=== PATIENT | male | born 1985 | race Caucasian/White ===

== ENCOUNTER 2018-01-17 22:20 | Emergency (ER) | payer SELFPAY ==
--- OUTSIDE RECORDS SUMMARY | 2018-01-17 22:22 | XMS REPORT | Clinical Summary ---
:1985 Author Organization [facility] Address [address] [place] [address] Phone Care Team Providers Name Role Phone Unavailable Primary Care Provider Unavailable Allergies Not on File Current Medications Not on file Active Problems Not on file Social History Tobacco Use Types Packs/Day Years Used Date Never Assessed Sex Assigned at Date Recorded Not on file Last Filed Vital Signs Not on file Plan of Treatment Not on file Results Not on fileafter 01/16/2017
--- NOTE | 2018-01-17 23:04 | ER ---
Nurse's Notes [facility] Name: Christiano Canales Age: 32 yrs Sex: Male : 1985 Arrival Date: 01/17/2018 Time: 22:21 Bed 30 Private MD: Diagnosis: Nausea and vomiting;Jaw pain-Right Upper Back Molar;Dental caries, unspecified-Diffusely Presentation: 01/17 22:45 Presenting complaint: Patient states: pt states that he has been vomiting the last tl3 couple of days at work, went home this afternoon and has since kept down some fluids and toast. Transition of care: patient was not received from another setting of care. Onset of symptoms was January 16, 2018. Risk Assessment: Do you want to hurt yourself or someone else? Patient reports no desire to harm self or others. Initial Sepsis Screen: Does the patient meet any 2 criteria? No. Patient's initial sepsis screen is negative. Does the patient have a suspected source of infection? No. Patient's initial sepsis screen is negative. Care prior to arrival: None. 22:45 Method Of Arrival: Ambulatory tl3 22:45 Acuity: ODILON 4 tl3 Triage Assessment: 22:49 General: Appears in no apparent distress. comfortable, slender, well groomed, well tl3 developed, well nourished, Behavior is calm, cooperative, appropriate for age. Pain: Denies pain. EENT: Throat is reddened. Neuro: Level of Consciousness is awake, alert, obeys commands, Oriented to person, place, time, situation, Appropriate for age. Cardiovascular: Heart tones S1 S2 present Patient's skin is warm and dry. Respiratory: Airway is patent Respiratory effort is even, unlabored, Respiratory pattern is regular, symmetrical. GI: Reports vomiting. : No signs and/or symptoms were reported regarding the genitourinary system. Derm: No signs and/or symptoms reported regarding the dermatologic system. Musculoskeletal: No signs and/or symptoms reported regarding the musculoskeletal system. Historical: - Allergies: 22:49 No Known Allergies; tl3 - Home Meds: 22:49 Suboxone 8-2 mg sublingual film 2 film once daily [Active]; tl3 - PMHx: 22:49 Substance Abuse; tl3 - PSHx: 22:49 None; tl3 - Immunization history:: Adult Immunizations up to date. - Social history:: Smoking status: Patient uses tobacco products, smokes two packs cigarettes per day. - Ebola Screening: : Patient denies travel to an Ebola-affected area in the 21 days before illness onset. Screenin:52 Abuse screen: Denies threats or abuse. Nutritional screening: No deficits noted. tl3 Tuberculosis screening: No symptoms or risk factors identified. Fall Risk None identified. Assessment: 22:52 Reassessment: No changes from previously documented assessment. GI: Reports vomiting, tl3 resolved. : No signs and/or symptoms were reported regarding the genitourinary system. EENT: Throat is reddened. Derm: No signs and/or symptoms reported regarding the dermatologic system. Musculoskeletal: No signs and/or symptoms reported regarding the musculoskeletal system. Vital Signs: 22:49 BP 119 / 61; Pulse 47; Resp 18; Temp 99(O); Pulse Ox 98% ; tl3 ED Course: 22:21 Patient arrived in ED. am2 22:28 Jersey Pickard PA is PHCP. cp 22:28 Jersey Caraballo MD is Attending Physician. cp 22:40 Kylie Lara, RISHI is Primary Nurse. tl3 22:46 Triage completed. tl3 22:49 Arm band placed on left wrist. tl3 22:52 Patient has correct armband on for positive identification. Bed in low position. Call tl3 light in reach. Side rails up X 1. Adult w/ patient. 22:52 No provider procedures requiring assistance completed. Patient did not have IV access tl3 during this emergency room visit. Administered Medications: 23:05 Drug: Zofran 4 mg Route: PO; tl3 23:05 Follow up: Response: Medication administered at discharge. tl3 23:05 Drug: Augmentin 875 mg Route: PO; tl3 23:05 Follow up: Response: Medication administered at discharge. tl3 Outcome: 23:03 Discharge ordered by . cp 23:09 Discharged to home ambulatory. tl3 23:09 Condition: good 23:09 Discharge instructions given to patient, Instructed on discharge instructions, follow up and referral plans. medication usage, Demonstrated understanding of instructions, follow-up care, medications, Prescriptions given X 2. 23:10 Patient left the ED. tl3 Signatures: Jersey Pickard PA PA cp Moreno, Amanda am2 Kylie Lara, RN RN tl3
--- NOTE | 2018-01-17 23:04 | EDPHYS ---
Physician Documentation [facility] Name: Christiano Canales Age: 32 yrs Sex: Male : 1985 Arrival Date: 01/17/2018 Time: 22:21 Bed 30 Private MD: ED Physician Jersey Caraballo HPI: 01/17 23:00 This 32 yrs old Male presents to ER via Ambulatory with complaints of cp Vomiting. 23:00 The patient presents to the emergency department with nausea, that is mild, vomiting, cp that is intermittent. Onset: The symptoms/episode began/occurred 2 day(s) ago. Possible causes: possible dental abscess. Associated signs and symptoms: Pertinent negatives: abdominal pain, constipation, diarrhea, fever, GI bleeding. 23:00 Severity of symptoms: in the emergency department the symptoms have improved moderately.cp Historical: - Allergies: 22:49 No Known Allergies; tl3 - Home Meds: 22:49 Suboxone 8-2 mg sublingual film 2 film once daily [Active]; tl3 - PMHx: 22:49 Substance Abuse; tl3 - PSHx: 22:49 None; tl3 - Immunization history:: Adult Immunizations up to date. - Social history:: Smoking status: Patient uses tobacco products, smokes two packs cigarettes per day. - Ebola Screening: : Patient denies travel to an Ebola-affected area in the 21 days before illness onset. ROS: 23:05 Constitutional: Negative for body aches, chills, fever, poor PO intake. cp 23:05 Eyes: Negative for injury, pain, redness, and discharge. cp 23:05 ENT: Positive for Teeth pain Negative for drainage from ear(s), ear pain, sore throat, difficulty swallowing, difficulty handling secretions. 23:05 Cardiovascular: Negative for chest pain, edema, palpitations. 23:05 Respiratory: Negative for cough, shortness of breath, wheezing. 23:05 Abdomen/GI: Positive for nausea, Negative for abdominal pain, diarrhea, constipation, active vomiting. 23:05 Skin: Negative for cellulitis, rash. 23:05 Neuro: Negative for altered mental status, dizziness, headache, weakness. 23:05 All other systems are negative. Exam: 23:10 Constitutional: The patient appears in no acute distress, alert, awake, non-toxic, well cp developed, well nourished. 23:10 Head/Face: Normocephalic, atraumatic. cp 23:10 Eyes: Periorbital structures: appear normal, Pupils: equal, round, and reactive to light and accomodation, Extraocular movements: intact throughout, Conjunctiva: normal, no exudate, no injection, Sclera: no appreciated abnormality, Lids and lashes: appear normal, bilaterally. 23:10 ENT: External ear(s): are unremarkable, Ear canal(s): are normal, clear, TM's: dullness, bilaterally, Nose: is normal, Mouth: Lips: moist, Oral mucosa: pink and intact, moist, Posterior pharynx: is normal, airway is patent, no erythema, no exudate, Dental exam: abscess, is not appreciated, cellulitis, is not appreciated, dental caries, that is severe, diffusely, fractured teeth are noted, diffusely, gum swelling, that is mild, specifically in the left upper jaw, missing teeth, diffusely, pain, that is mild, specifically in the left upper jaw, Voice: is normal. 23:10 Neck: ROM/movement: is normal, is supple, without pain, no range of motions limitations, no meningismus, no nuchal rigidity, Lymph nodes: no appreciated lymphadenopathy. 23:10 Chest/axilla: Inspection: normal, Palpation: is normal, no crepitus, no tenderness. 23:10 Cardiovascular: Rate: bradycardic, Rhythm: regular. 23:10 Respiratory: the patient does not display signs of respiratory distress, Respirations: normal, no use of accessory muscles, no retractions, no splinting, no tachypnea, labored breathing, is not present, Breath sounds: are clear throughout, no decreased breath sounds, no stridor, no wheezing. 23:10 Abdomen/GI: Inspection: abdomen appears normal, Palpation: abdomen is soft and non-tender, in all quadrants, rebound tenderness, is not appreciated, voluntary guarding, is not appreciated, involuntary guarding, is not appreciated. 23:10 Skin: cellulitis, is not appreciated, no rash present. Vital Signs: 22:49 BP 119 / 61; Pulse 47; Resp 18; Temp 99(O); Pulse Ox 98% ; tl3 MDM: 22:32 Patient medically screened. cp 23:00 Differential diagnosis: gastritis, viral gastroenteritis, gastroenteritis. cp 23:03 Data reviewed: vital signs, nurses notes, and as a result, I will discharge patient. cp 23:03 Counseling: I had a detailed discussion with the patient and/or guardian regarding: the cp historical points, exam findings, and any diagnostic results supporting the discharge/admit diagnosis, to return to the emergency department if symptoms worsen or persist or if there are any questions or concerns that arise at home. Response to treatment: the patient's symptoms have markedly improved after treatment, and as a result, I will discharge patient. Administered Medications: 23:05 Drug: Zofran 4 mg Route: PO; tl3 23:05 Follow up: Response: Medication administered at discharge. tl3 23:05 Drug: Augmentin 875 mg Route: PO; tl3 23:05 Follow up: Response: Medication administered at discharge. tl3 Disposition: 01/17/18 23:03 Discharged to Home. Impression: Nausea and vomiting, Jaw pain - Right Upper Back Molar, Dental caries, unspecified - Diffusely. - Condition is Stable. - Discharge Instructions: Dehydration, Adult, Nausea and Vomiting. - Prescriptions for Amoxicillin 875 mg Oral Tablet - take 1 tablet by ORAL route every 12 hours for 10 days; 20 tablet. Zofran 4 mg Oral Tablet - take 1 tablet by ORAL route every 12 hours As needed; 20 tablet. - Work release form, Medication Reconciliation Form, Thank You Letter, Antibiotic Education, Prescription Opioid Use form. - Follow up: Private Physician; When: 2 - 3 days; Reason: dental pain. - Problem is new. - Symptoms have improved. Addendum: 01/21/2018 09:53 Co-signature as Attending Physician, Jersey Caraballo MD I agree with the assessment and c yoo plan of care. Signatures: Jersey Caraballo MD MD cha Page, Corey, PA PA cp Lowrey, Tammy, RN RN tl3 Corrections: (The following items were deleted from the chart) 01/17 23:10 23:03 01/17/2018 23:03 Discharged to Home. Impression: Nausea and vomiting; Jaw pain - tl3 Right Upper Back Molar; Dental caries, unspecified - Diffusely. Condition is Stable. Forms are Medication Reconciliation Form, Thank You Letter, Antibiotic Education, Prescription Opioid Use. Follow up: Private Physician; When: 2 - 3 days; Reason: dental pain. Problem is new. Symptoms have improved. cp
[2018-01-17] MEDS ORDERED: ONDANSETRON 4 MG (ODT) TAB ONE (23:05)
[2018-01-17] MEDS ORDERED: AMOX/K CLAV 875 MG TAB ONE (23:05)
== END 2018-01-17 23:10 | disposition home or self-care (01) ==
LOC: ER 22:20
DX: R11.2 Nausea with vomiting, unspecified (principal); K02.9 Dental caries, unspecified; F17.210 Nicotine dependence, cigarettes, uncomplicated
CPT/HCPCS: 99283

== ENCOUNTER 2018-08-01 11:06 | Emergency (ER) | payer SELFPAY ==
--- OUTSIDE RECORDS SUMMARY | 2018-08-01 11:10 | XMS REPORT | Clinical Summary ---
:1985 Author Organization [facility] Address [address] [place] [address] Care Team Providers Name Role Phone Unavailable Primary Care Provider Unavailable Allergies Not on File Medications Not on file Active Problems Not on file Social History Tobacco Use Types Packs/Day Years Used Date Never Assessed Sex Assigned at Date Recorded Not on file Job Start Date Occupation Industry Not on file Not on file Not on file Travel History Travel Start Travel End No recent travel history available. Last Filed Vital Signs Not on file Plan of Treatment Not on file Results Not on fileafter 07/31/2017
--- NOTE | 2018-08-01 12:07 | ER ---
Nurse's Notes [facility] Name: Christiano Canales Age: 33 yrs Sex: Male : 1985 Arrival Date: 08/01/2018 Time: 11:07 Bed 11 Private MD: Diagnosis: Acute upper respiratory infection, unspecified Presentation: 08/01 11:37 Presenting complaint: Patient states: Productive cough, fever, nasal congestion, and ph sore throat x 1 week, TMAX 102, denies N/V/D. Transition of care: patient was not received from another setting of care. Onset of symptoms was August 01, 2018. Risk Assessment: Do you want to hurt yourself or someone else? Patient reports no desire to harm self or others. Initial Sepsis Screen: Does the patient meet any 2 criteria? No. Patient's initial sepsis screen is negative. Does the patient have a suspected source of infection? No. Patient's initial sepsis screen is negative. Care prior to arrival: None. 11:37 Method Of Arrival: Ambulatory 11:37 Acuity: ODILON 4 ph Historical: - Allergies: 11:40 No Known Allergies; ph - Home Meds: 11:40 Suboxone 8-2 mg sublingual film 2 film once daily [Active]; ph - PMHx: 11:40 Substance Abuse; ph - PSHx: 11:40 None; ph - Immunization history:: Adult Immunizations unknown. - Social history:: Smoking status: Patient uses tobacco products, smokes two packs cigarettes per day. Patient/guardian denies using alcohol, street drugs, The patient lives with family. - Family history:: not pertinent. - Ebola Screening: : No symptoms or risks identified at this time. Screenin:05 Abuse screen: Denies threats or abuse. Denies injuries from another. Nutritional hb screening: No deficits noted. Tuberculosis screening: No symptoms or risk factors identified. Fall Risk None identified. Assessment: 12:00 General: Appears in no apparent distress. comfortable, slender, well groomed, Behavior ph is calm, cooperative, appropriate for age. Pain: Complains of pain in throat. Neuro: Level of Consciousness is awake, alert, obeys commands, Oriented to person, place, time, situation. Cardiovascular: Capillary refill < 3 seconds in bilateral fingers Patient's skin is warm and dry. Respiratory: Reports cough that is Airway is patent Respiratory effort is even, unlabored, Respiratory pattern is regular, symmetrical, Breath sounds are clear bilaterally. Breath sounds are coarse in mediastinum. GI: No signs and/or symptoms were reported involving the gastrointestinal system. EENT: Throat is reddened bilaterally. Derm: Skin is intact, is healthy with good turgor, Skin is pink, warm \T\ dry. Musculoskeletal: Circulation, motion, and sensation intact. Range of motion: intact in all extremities. Vital Signs: 11:39 BP 147 / 76; Pulse 81; Resp 18; Temp 98.4; Pulse Ox 96% on R/A; Weight 86.18 kg; Height ph 5 ft. 7 in. (170.18 cm); 11:39 Body Mass Index 29.76 (86.18 kg, 170.18 cm) ph ED Course: 11:07 Patient arrived in ED. mr 11:39 Triage completed. ph 11:40 Amirah De Jesus MD is Attending Physician. ma2 11:40 Arm band placed on. ph 11:41 Samra Pierson RN is Primary Nurse. ph 12:00 Patient has correct armband on for positive identification. Bed in low position. Call light in reach. Side rails up X 1. Pulse ox on. 12:31 No provider procedures requiring assistance completed. Patient did not have IV access hb during this emergency room visit. Administered Medications: No medications were administered Outcome: 12:06 Discharge ordered by . ma2 12:31 Discharged to home ambulatory. hb 12:31 Condition: stable 12:31 Discharge instructions given to patient, Instructed on discharge instructions, follow up and referral plans. medication usage, Demonstrated understanding of instructions, follow-up care, medications, Prescriptions given X 2. 12:31 Patient left the ED. Signatures: Toro Myla haley Samra Pierson, RN RN Nabila Regan RN RN Amirah De Jesus MD MD nm2 Corrections: (The following items were deleted from the chart) 18:03 12:00 Respiratory: Reports cough that is Airway is patent Respiratory effort is even, ph unlabored, Respiratory pattern is regular, symmetrical, Breath sounds are clear bilaterally. ph
--- NOTE | 2018-08-01 12:07 | EDPHYS ---
Physician Documentation [facility] Name: Christiano Canales Age: 33 yrs Sex: Male : 1985 Arrival Date: 08/01/2018 Time: 11:07 Bed 11 Private MD: ED Physician Amirah De Jesus HPI: 08/01 12:04 This 33 yrs old Male presents to ER via Ambulatory with complaints of Cough, ma2 Congestion, Breathing Difficulty. 12:04 Onset: The symptoms/episode began/occurred gradually, 2 day(s) ago. Severity of ma2 symptoms: At their worst the symptoms were moderate, in the emergency department the symptoms are unchanged. Associated signs and symptoms: Pertinent positives: fever, sore throat, Pertinent negatives: chest pain, diarrhea, ear ache, fever, nausea, rhinorrhea, vomiting. The patient has experienced similar episodes in the past. Historical: - Allergies: 11:40 No Known Allergies; ph - Home Meds: 11:40 Suboxone 8-2 mg sublingual film 2 film once daily [Active]; ph - PMHx: 11:40 Substance Abuse; ph - PSHx: 11:40 None; ph - Immunization history:: Adult Immunizations unknown. - Social history:: Smoking status: Patient uses tobacco products, smokes two packs cigarettes per day. Patient/guardian denies using alcohol, street drugs, The patient lives with family. - Family history:: not pertinent. - Ebola Screening: : No symptoms or risks identified at this time. ROS: 12:04 Neck: Negative for injury, pain, and swelling, Cardiovascular: Negative for chest pain, ma2 palpitations, and edema, Respiratory: Negative for shortness of breath, cough, wheezing, and pleuritic chest pain, Abdomen/GI: Negative for abdominal pain, nausea, diarrhea, and constipation. 12:04 Constitutional: Positive for fever, Negative for chills, fatigue, poor PO intake, weight loss. 12:04 Constitutional: Positive for 12:04 ENT: Positive for sore throat, Negative for injury or acute deformity, ear pain, hearing loss, pulling at ears. 12:04 Respiratory: Positive for cough, Negative for dyspnea on exertion, hemoptysis, orthopnea, pleurisy, sputum production, wheezing. 12:04 All other systems are negative. Exam: 12:04 Constitutional: This is a well developed, well nourished patient who is awake, alert, ma2 and in no acute distress. Neck: Trachea midline, no thyromegaly or masses palpated, and no cervical lymphadenopathy. Supple, full range of motion without nuchal rigidity, or vertebral point tenderness. No Meningismus. Chest/axilla: Normal chest wall appearance and motion. Nontender with no deformity. No lesions are appreciated. Cardiovascular: Regular rate and rhythm with a normal S1 and S2. No gallops, murmurs, or rubs. Normal PMI, no JVD. No pulse deficits. Respiratory: Lungs have equal breath sounds bilaterally, clear to auscultation and percussion. No rales, rhonchi or wheezes noted. No increased work of breathing, no retractions or nasal flaring. Abdomen/GI: Soft, non-tender, with normal bowel sounds. No distension or tympany. No guarding or rebound. No evidence of tenderness throughout. Neuro: Awake and alert, GCS 15, oriented to person, place, time, and situation. Cranial nerves II-XII grossly intact. Motor strength 5/5 in all extremities. Sensory grossly intact. Cerebellar exam normal. Normal gait. 12:04 ENT: TM's: Nose: is normal, Mouth: Posterior pharynx: Tonsils: bilaterally enlarged, erythema, that is mild. Vital Signs: 11:39 BP 147 / 76; Pulse 81; Resp 18; Temp 98.4; Pulse Ox 96% on R/A; Weight 86.18 kg; Height ph 5 ft. 7 in. (170.18 cm); 11:39 Body Mass Index 29.76 (86.18 kg, 170.18 cm) ph MDM: 11:40 Patient medically screened. ma2 12:04 Differential Diagnosis: Bronchitis Upper Respiratory Infection Sinusitis Pharyngitis. ma2 Data reviewed: vital signs, nurses notes. Counseling: I had a detailed discussion with the patient and/or guardian regarding: the historical points, exam findings, and any diagnostic results supporting the discharge/admit diagnosis, the presence of at least one elevated blood pressure reading (>120/80) during this emergency department visit, the need for outpatient follow up. 08/01 11:41 Order name: Flu 08/01 11:41 Order name: Strep 08/01 12:13 Order name: Throat Culture EDMS Administered Medications: No medications were administered Disposition: 08/01/18 12:06 Discharged to Home. Impression: Acute upper respiratory infection, unspecified. - Condition is Stable. - Discharge Instructions: Upper Respiratory Infection, Adult, Form - Excuse from Work, School, or Physical Activity. - Prescriptions for Amoxicillin 875 mg Oral Tablet - take 1 tablet by ORAL route every 12 hours for 10 days; 20 tablet. Tylenol- Codeine #3 300-30 mg Oral Tablet - take 2 tablet by ORAL route every 6 hours As needed; 30 tablet. - Medication Reconciliation Form, Thank You Letter, Antibiotic Education, Prescription Opioid Use form. - Follow up: Private Physician; When: Tomorrow; Reason: If symptoms return, Continuance of care. Signatures: Dispatcher [employer] EDSamra Roque RN RN Nabila Regan RN RN Amirah Montero MD MD ma2 Corrections: (The following items were deleted from the chart) 12:31 12:06 08/01/2018 12:06 Discharged to Home. Impression: Acute upper respiratory hb infection, unspecified. Condition is Stable. Forms are Medication Reconciliation Form, Thank You Letter, Antibiotic Education, Prescription Opioid Use. Follow up: Private Physician; When: Tomorrow; Reason: If symptoms return, Continuance of care. ma2
== END 2018-08-01 12:31 | disposition home or self-care (01) ==
LOC: ER 11:06
DX: J06.9 Acute upper respiratory infection, unspecified (principal); F17.210 Nicotine dependence, cigarettes, uncomplicated
CPT/HCPCS: 87070; 87081; 87804; 99283

== ENCOUNTER 2019-05-24 13:03 | Emergency (ER) | payer SELFPAY ==
[2019-05-24] MEDS ORDERED: FAMOTIDINE 20 MG/2 ML VIAL IV ONE (13:25)
[2019-05-24] MEDS ORDERED: NA CHLORIDE 0.9% 1,000 ML ONE (13:25)
[2019-05-24] MEDS ORDERED: MORPHINE 2 MG/ML SYR ONE (13:25)
[2019-05-24 13:32] LABS: Basophils % 0.4 % (0-1.3); Hematocrit 46.6 % (39.6-49.0); Lymphocytes % 10.3 % (15.3-44.8); MPV 7.4 fL (7.6-11.3); RBC Red Blood Cell Count 5.14 M/uL (4.33-5.43)
[2019-05-24] MEDS ORDERED: ONDANSETRON 4 MG/2 ML VIAL ONE (13:34)
[2019-05-24 14:07] LABS: Blood Morphology Comment NOT SEEN (NOT SEEN); Platelet Estimate ADEQ; Urine White Blood Cell Casts OK
[2019-05-24 14:29] LABS: ALT/SGPT 19 U/L (12-78); AST/SGOT 19 U/L (15-37); Albumin 4.1 g/dL (3.4-5.0); Alkaline Phosphatase 71 U/L (45-117); BUN Blood Urea Nitrogen 9 mg/dL (7-18); Bicarbonate 28 mmol/L (21-32); Bilirubin Direct < 0.1 mg/dL (0-0.2); Bilirubin Total 0.2 mg/dL (0.2-1.0); Glucose Level 107 mg/dL (74-106); Lipase 134 U/L (73-393); Magnesium 1.9 mg/dL (1.8-2.4); Potassium 4.8 mmol/L (3.5-5.1); Sodium Level 141 mmol/L (136-145)
--- NOTE | 2019-05-24 14:56 | RAD REPORT ---
EXAM DESCRIPTION: CT - Abdomen Pelvis W Contrast - 05/24/2019 2:38 pm CLINICAL HISTORY: ABD PAIN COMPARISON: CT study December 2015 TECHNIQUE: Biphasic, helical CT imaging of the abdomen and pelvis was performed following 100 ml non -ionic IV contrast. No oral contrast administered. All CT scans are performed using dose optimization technique as appropriate and may include automated exposure control or mA/KV adjustment according to patient size. FINDINGS: No suspicious findings in the lung bases. The liver, spleen, and pancreas show no suspicious findings. Gallbladder and biliary tree are also wi thout suspicious finding. Symmetric renal function is seen with no hydronephrosis or suspicious renal mass. No pyelonephritis o r acute parenchymal process. No bladder abnormalities. No adrenal abnormalities. No gastric dilatation or wall thickening. No dilated small bowel. The appendix is normal. Lockwood of th e transverse colon are mildly prominent probably from a peristalsis artifact. Large amount of stool d ilates the distal sigmoid and proximal rectum. Circumferential wall thickening of the distal rectum n ear the anus is probably a peristalsis affect. No edema or stranding in the perirectal fat. Correlati on would be needed with any localizing symptoms. No free air, free fluid or inflammatory stranding. No hernia, mass or bulky lymphadenopathy. No suspicious bony findings. IMPRESSION: Contrast enhanced CT abdomen and pelvis showing no emergent finding. Prominent lockwood in the transverse colon and distal rectum are probably peristalsis artifacts. Neither area shows adjacent edematous/inflammatory stranding. Large amount of stool is present causing mild dilation of the proximal rectum and distal sigmoid colon.
--- NOTE | 2019-05-24 16:01 | EDPHYS ---
Physician Documentation [facility] Name: Christiano Canales Age: 34 yrs Sex: Male : 1985 Arrival Date: 05/24/2019 Time: 13:11 Bed 13 Private MD: ED Physician Kwaku Campos HPI: 05/24 13:15 This 34 yrs old Male presents to ER via EMS with complaints of cp Nausea/Vomiting. 13:15 The patient presents to the emergency department with nausea, that is moderate, cp vomiting, that is intermittent, described as bilious, abdominal pain, of the epigastric area. 13:15 Onset: The symptoms/episode began/occurred 3 day(s) ago. cp 13:15 Possible causes: ran out of prescribed Suboxone 4 days ago and has not contacted cp prescribing physician for refill. Associated signs and symptoms: Pertinent negatives: constipation, fever, GI bleeding. Severity of symptoms: in the emergency department the symptoms are unchanged despite home interventions. Historical: - Allergies: 13:15 No Known Allergies; rb1 - Home Meds: 13:15 Suboxone 8-2 mg sublingual film 2 film once daily [Active]; rb1 - PMHx: 13:15 Substance Abuse; rb1 - PSHx: 13:15 None; rb1 - Immunization history:: Adult Immunizations up to date. - Social history:: Smoking status: Patient uses tobacco products, smokes two packs cigarettes per day. - Ebola Screening: : Patient negative for fever greater than or equal to 101.5 degrees Fahrenheit, and additional compatible Ebola Virus Disease symptoms. ROS: 13:20 Constitutional: Positive for poor PO intake, Negative for body aches, chills, fever. cp 13:20 Eyes: Negative for injury, pain, redness, and discharge. cp 13:20 Cardiovascular: Negative for chest pain, edema, palpitations. 13:20 Respiratory: Negative for cough, shortness of breath, wheezing. 13:20 Abdomen/GI: Positive for abdominal pain, nausea, vomiting, anorexia, of the epigastric area, Negative for constipation, black/tarry stool, rectal bleeding. 13:20 Back: Negative for radiated pain. 13:20 Neuro: Negative for altered mental status, headache, weakness. 13:20 All other systems are negative. Exam: 13:30 Constitutional: The patient appears in no acute distress, alert, awake, cp non-diaphoretic, non-toxic, well developed, well nourished, uncomfortable. 13:30 Head/Face: Normocephalic, atraumatic. cp 13:30 Eyes: Periorbital structures: appear normal, Conjunctiva: normal, no exudate, no injection, Sclera: no appreciated abnormality, Lids and lashes: appear normal, bilaterally. 13:30 ENT: External ear(s): are unremarkable, Nose: is normal, Mouth: Lips: moist, Oral mucosa: pink and intact, moist, Posterior pharynx: is normal, airway is patent, no erythema, no exudate. 13:30 Chest/axilla: Inspection: normal, Palpation: is normal, no crepitus, no tenderness. 13:30 Cardiovascular: Rate: bradycardic, Rhythm: regular. 13:30 Respiratory: the patient does not display signs of respiratory distress, Respirations: normal, no use of accessory muscles, no retractions, no splinting, no tachypnea, labored breathing, is not present, Breath sounds: are clear throughout, no decreased breath sounds, no stridor, no wheezing. 13:30 Abdomen/GI: Inspection: abdomen appears normal, Bowel sounds: active, all quadrants, Palpation: soft, in all quadrants, moderate abdominal tenderness, in the epigastric area, rebound tenderness, is not appreciated, voluntary guarding, is elicited in the epigastric area. 13:30 Back: pain, is absent, ROM is normal. 13:30 Skin: no rash present. 13:30 Neuro: Orientation: to person, place \T\ time. Mentation: is normal. 13:38 ECG was reviewed by the Attending Physician. cp Vital Signs: 13:15 BP 149 / 89; Pulse 54; Resp 17; Temp 98.2(O); Pulse Ox 100% on R/A; Weight 97.52 kg rb1 (R); Height 5 ft. 8 in. (172.72 cm) (R); Pain 8/10; 14:15 BP 159 / 77; Pulse 56; Resp 16; Pulse Ox 100% on R/A; rb1 15:07 BP 168 / 77; Pulse 60; Resp 17; Pulse Ox 99% on R/A; Pain 6/10; rb1 16:00 BP 143 / 77; Pulse 58; Resp 16; Pulse Ox 99% on R/A; rb1 13:15 Body Mass Index 32.69 (97.52 kg, 172.72 cm) rb1 MDM: 13:16 Patient medically screened. cp 14:00 Differential diagnosis: gastritis, pancreatitis, diverticulitis, viral gastroenteritis, cp gastroenteritis. 16:00 Data reviewed: vital signs, nurses notes, lab test result(s), radiologic studies, CT cp scan. 16:00 Counseling: I had a detailed discussion with the patient and/or guardian regarding: the cp historical points, exam findings, and any diagnostic results supporting the discharge/admit diagnosis, lab results, radiology results, to return to the emergency department if symptoms worsen or persist or if there are any questions or concerns that arise at home. Response to treatment: the patient's symptoms have markedly improved after treatment, VSS. Pain and nausea improved and vomiting resolved. Will discharge to home for continued monitoring. 05/24 13:14 Order name: Basic Metabolic Panel; Complete Time: 15:06 cp 05/24 15:07 Interpretation: Normal except: CL 109; GLUC 107. cp 05/24 13:14 Order name: CBC with Diff; Complete Time: 15:06 cp 05/24 15:07 Interpretation: Normal except: MPV 7.4; LANE% 86.0; LYM% 10.3; MN% 3.2; NEUT A 8.5. 05/24 13:14 Order name: Creatinine for Radiology; Complete Time: 15:06 cp 05/24 13:14 Order name: Hepatic Function; Complete Time: 15:06 cp 05/24 13:14 Order name: Lipase; Complete Time: 15:06 cp 05/24 13:14 Order name: Magnesium; Complete Time: 15:06 cp 05/24 13:14 Order name: IV Saline Lock; Complete Time: 13:21 cp 05/24 13:14 Order name: CT Abd/Pelvis - IV Contrast Only; Complete Time: 15:06 cp 05/24 13:14 Order name: EKG; Complete Time: 13:15 cp 05/24 13:36 Order name: CBC Smear Scan; Complete Time: 15:06 EDMS 05/24 13:14 Order name: Labs collected and sent; Complete Time: 14:44 cp 05/24 13:14 Order name: EKG - Nurse/Tech; Complete Time: 13:34 cp 05/24 13:35 Order name: Labs - recollect needed: chemistry; Complete Time: 14:12 eb 05/24 15:08 Order name: PO challenge; Complete Time: 15:45 cp EC:38 Rate is 55 beats/min. Rhythm is regular. TX interval is normal. QRS interval is normal. cp QT interval is normal. T waves are Flattened in lead aVL. Interpreted by me. Reviewed by me. Administered Medications: 13:44 Drug: NS 0.9% 1000 ml Route: IV; Rate: 1 bolus; Site: left antecubital; rb1 14:30 Follow up: IV Status: Completed infusion rb1 13:44 Drug: morphine 2 mg Route: IVP; Site: left antecubital; rb1 14:00 Follow up: Response: No adverse reaction rb1 13:44 Drug: Pepcid 20 mg Route: IVP; Site: left antecubital; rb1 14:00 Follow up: Response: No adverse reaction rb1 13:50 Drug: Zofran 4 mg Route: IVP; Site: left antecubital; rb1 14:00 Follow up: Response: No adverse reaction rb1 Disposition: 05/24/19 16:00 Discharged to Home. Impression: Nausea and vomiting, Patient's unintentional underdosing of medication regimen for other reason. - Condition is Stable. - Discharge Instructions: Nausea and Vomiting, Adult. - Prescriptions for Zofran 4 mg Oral Tablet - take 1 tablet by ORAL route every 12 hours As needed; 20 tablet. - Medication Reconciliation Form, Thank You Letter, Antibiotic Education, Prescription Opioid Use, Work release form form. - Follow up: Private Physician; When: 1 - 2 days; Reason: Recheck today's complaints. - Problem is new. - Symptoms have improved. Signatures: Dispatcher [employer] EDMS Jersey Pickard PA PA cp Barber, Rebecca RN RN rb1 Danae Rouse eb Corrections: (The following items were deleted from the chart) 16:14 16:00 05/24/2019 16:00 Discharged to Home. Impression: Nausea and vomiting; Patient's rb1 unintentional underdosing of medication regimen for other reason. Condition is Stable. Forms are Medication Reconciliation Form, Thank You Letter, Antibiotic Education, Prescription Opioid Use. Follow up: Private Physician; When: 1 - 2 days; Reason: Recheck today's complaints. Problem is new. Symptoms have improved. cp
--- NOTE | 2019-05-24 16:01 | ER ---
Nurse's Notes [facility] Name: Christiano Canales Age: 34 yrs Sex: Male : 1985 Arrival Date: 05/24/2019 Time: 13:11 Bed 13 Private MD: Diagnosis: Nausea and vomiting;Patient's unintentional underdosing of medication regimen for other reason Presentation: 05/24 13:12 Presenting complaint: EMS states: Pt. c/o of nausea, vomiting, and abdominal pain. 20 G rb1 L AC, administered Zofran 4 mg IVP x 1. NKA, vital signs stable, BS 130. Transition of care: patient was not received from another setting of care. Onset of symptoms was May 20, 2019. Risk Assessment: Do you want to hurt yourself or someone else? Patient reports no desire to harm self or others. Initial Sepsis Screen: Does the patient meet any 2 criteria? No. Patient's initial sepsis screen is negative. Does the patient have a suspected source of infection? No. Patient's initial sepsis screen is negative. Care prior to arrival: Medication(s) given: zofran 4 mg. 13:12 Method Of Arrival: EMS: [facility] 13:12 Acuity: ODILON 3 rb1 Triage Assessment: 13:15 General: Appears in no apparent distress. comfortable, Behavior is calm, cooperative, rb1 Reports chills for Denies fever. Pain: Complains of pain in epigastric area Pain currently is 8 out of 10 on a pain scale. Pain began x 4 day. Neuro: Level of Consciousness is awake, alert, obeys commands, Oriented to person, place, time, situation. Cardiovascular: Capillary refill < 3 seconds is brisk in bilateral fingers. Respiratory: Airway is patent Respiratory effort is even, unlabored, Respiratory pattern is regular, symmetrical. GI: Reports nausea, vomiting. : No signs and/or symptoms were reported regarding the genitourinary system. Derm: Skin is pink, warm \T\ dry. Historical: - Allergies: 13:15 No Known Allergies; rb1 - Home Meds: 13:15 Suboxone 8-2 mg sublingual film 2 film once daily [Active]; rb1 - PMHx: 13:15 Substance Abuse; rb1 - PSHx: 13:15 None; rb1 - Immunization history:: Adult Immunizations up to date. - Social history:: Smoking status: Patient uses tobacco products, smokes two packs cigarettes per day. - Ebola Screening: : Patient negative for fever greater than or equal to 101.5 degrees Fahrenheit, and additional compatible Ebola Virus Disease symptoms. Screenin:15 Abuse screen: Denies threats or abuse. Nutritional screening: Has had N/V for 3 or more rb1 days. Tuberculosis screening: No symptoms or risk factors identified. Fall Risk None identified. Assessment: 13:15 General: EKG. rb1 14:15 Reassessment: Patient appears in no apparent distress at this time. Patient and/or rb1 family updated on plan of care and expected duration. Pain level reassessed. Patient is alert, oriented x 3, equal unlabored respirations, skin warm/dry/pink. 15:06 Reassessment: Patient appears in no apparent distress at this time. Patient and/or rb1 family updated on plan of care and expected duration. Pain level reassessed. Patient is alert, oriented x 3, equal unlabored respirations, skin warm/dry/pink. 15:30 Reassessment: Had to wake the pt. up and remind him to drink the water for the PO rb1 challenge. He verbalized understanding. 15:43 Reassessment: Pt. has not drank the water at this time, reminded him to drink it rb1 because we want to see if he can tolerate liquids. 16:00 Reassessment: Patient appears in no apparent distress at this time. Patient and/or rb1 family updated on plan of care and expected duration. Pain level reassessed. Patient is alert, oriented x 3, equal unlabored respirations, skin warm/dry/pink. Pt. tolerated PO challenge well. No vomiting noted at this time Patient states feeling better. Patient states symptoms have improved. Vital Signs: 13:15 BP 149 / 89; Pulse 54; Resp 17; Temp 98.2(O); Pulse Ox 100% on R/A; Weight 97.52 kg rb1 (R); Height 5 ft. 8 in. (172.72 cm) (R); Pain 8/10; 14:15 BP 159 / 77; Pulse 56; Resp 16; Pulse Ox 100% on R/A; rb1 15:07 BP 168 / 77; Pulse 60; Resp 17; Pulse Ox 99% on R/A; Pain 6/10; rb1 16:00 BP 143 / 77; Pulse 58; Resp 16; Pulse Ox 99% on R/A; rb1 13:15 Body Mass Index 32.69 (97.52 kg, 172.72 cm) rb1 ED Course: 13:11 Patient arrived in ED. rb1 13:13 Jersey Pickard PA is PHCP. cp 13:13 Kwaku Campos MD is Attending Physician. cp 13:15 Triage completed. rb1 13:15 Arm band placed on right wrist. rb1 13:15 Patient has correct armband on for positive identification. Bed in low position. Call rb1 light in reach. Side rails up X 1. Pulse ox on. NIBP on. Warm blanket given. 13:15 Maintain EMS IV. Dressing intact. Good blood return noted. Site clean \T\ dry. Gauge \T\ rb 1 site: 20 G L AC. 13:20 Bandar Poon, RN is Primary Nurse. mg2 13:20 Radiology exam delayed due to lab results not completed at this time. (BUN/Creatinine). kw1 14:39 CT Abd/Pelvis - IV Contrast Only In Process Unspecified. EDMS 16:13 No provider procedures requiring assistance completed. IV discontinued, intact, rb1 bleeding controlled, No redness/swelling at site. Pressure dressing applied. Administered Medications: 13:44 Drug: NS 0.9% 1000 ml Route: IV; Rate: 1 bolus; Site: left antecubital; rb1 14:30 Follow up: IV Status: Completed infusion rb1 13:44 Drug: morphine 2 mg Route: IVP; Site: left antecubital; rb1 14:00 Follow up: Response: No adverse reaction rb1 13:44 Drug: Pepcid 20 mg Route: IVP; Site: left antecubital; rb1 14:00 Follow up: Response: No adverse reaction rb1 13:50 Drug: Zofran 4 mg Route: IVP; Site: left antecubital; rb1 14:00 Follow up: Response: No adverse reaction rb1 Outcome: 16:00 Discharge ordered by . cp 16:13 Discharged to home ambulatory. rb1 16:13 Condition: stable 16:13 Discharge instructions given to patient, Instructed on discharge instructions, follow up and referral plans. medication usage, Demonstrated understanding of instructions, follow-up care, medications, Prescriptions given X 1. 16:14 Patient left the ED. rb1 Signatures: Dispatcher [employer] EDMS Jersey Pickard, PA PA cp Ochoa, Kajal, RN RN rb1 Devika Gipson kw1 Bandar Poon RN RN mg2 Corrections: (The following items were deleted from the chart) 16:13 16:00 Reassessment: Pt. tolerated PO challenge well. No vomiting noted at this time rb1 rb1
[2019-05-24 18:47] VITALS: TEMP 98.2
[2019-05-24 18:50] VITALS: O2SAT 99
[2019-05-24 18:51] VITALS: BP 143/77
--- NOTE | 2019-05-25 06:10 | EKG ---
Test Date: 2019-05-24 Test Time: 13:28:44 Elementary Education Teacher: MG MEASUREMENT RESULTS: Intervals: Rate: 55 WY: 146 QRSD: 100 QT: 382 QTc: 365 [place]: P: 34 WY: 146 QRS: 0 T: 58 INTERPRETIVE STATEMENTS: Sinus bradycardia with sinus arrhythmia Otherwise normal ECG No previous ECG available for comparison Electronically Signed On 05-25-19 06:09:21 CDT by Rangel De Leon
== END 2019-05-24 16:14 | disposition home or self-care (01) ==
LOC: ER 13:03
DX: Z91.138 Patient's unintentional underdosing of medication regimen for other reason (principal); F17.210 Nicotine dependence, cigarettes, uncomplicated
CPT/HCPCS: 36415; 74177; 80048; 80076; 83690; 83735; 85025; 93005; 96361; 96374; 96375; 99284; J2270; J2405; J7030; Q9967

== ENCOUNTER 2020-01-26 16:48 | Emergency (ER) | payer SELFPAY ==
--- OUTSIDE RECORDS SUMMARY | 2020-01-26 16:50 | XMS REPORT | Clinical Summary ---
:1985 Author Organization [facility] Address [address] [place] [address] Care Team Providers Name Role Phone Unavailable [...] Not on file Results Not on fileafter 01/25/2019
[2020-01-26 18:25] LABS: Absolute Lymphocytes (CBC) 2.2 K/uL (0.7-4.9); Basophils % 0.3 % (0-1.3); Hematocrit 33.1 % (39.6-49.0); Lymphocytes % 22.9 % (15.3-44.8); MPV 6.8 fL (7.6-11.3); RBC Red Blood Cell Count 3.68 M/uL (4.33-5.43)
[2020-01-26 18:54] LABS: Urine Blood 3+ (NEG); Urine Glucose NEGATIVE (NEG); Urine Protein 3+ (NEG); Urine Specific Gravity >1.030 (1.005-1.030); Urine pH 5.5 (5.0-7.0)
[2020-01-26 19:07] LABS: ALT/SGPT 25 U/L (12-78); AST/SGOT 27 U/L (15-37); Albumin 2.8 g/dL (3.4-5.0); Alkaline Phosphatase 86 U/L (45-117); BUN Blood Urea Nitrogen 25 mg/dL (7-18); Bicarbonate 28 mmol/L (21-32); Bilirubin Direct < 0.1 mg/dL (0-0.2); Bilirubin Total 0.2 mg/dL (0.2-1.0); Glucose Level 89 mg/dL (74-106); Lipase 102 U/L (73-393); Potassium 4.3 mmol/L (3.5-5.1); Protein, Total 6.8 g/dL (6.4-8.2); Sodium Level 144 mmol/L (136-145)
[2020-01-26 20:16] LABS: NT PRO-BNP 1203 pg/mL (<125); Troponin (Emerg Dept Use Only) < 0.02 ng/mL (0.0-0.045)
--- NOTE | 2020-01-26 21:05 | RAD REPORT ---
EXAM DESCRIPTION: RAD - Chest Single View - 01/26/2020 9:01 pm CLINICAL HISTORY: SWELLING Chest pain. COMPARISON: Chest Pa And Lat (2 Views) dated 08/27/2017; Abdomen Acute Series dated 10/29/2016 FINDINGS: Portable technique limits examination quality. The lungs are grossly clear. The heart is upper limit of normal in size. No displaced fractures. IMPRESSION: No acute intrathoracic process suspected.
--- NOTE | 2020-01-26 21:40 | RAD REPORT ---
EXAM DESCRIPTION: CT - Chest For Pe Angio - 01/26/2020 9:32 pm CLINICAL HISTORY: Chest pain. PE COMPARISON: No comparisons TECHNIQUE: CT angiogram of the pulmonary arteries was performed with MIP. All CT scans are performed using dose optimization technique as appropriate and may include automated exposure control or mA/KV adjustment according to patient size. FINDINGS: No evidence of pulmonary thromboembolism. No acute aortic finding demonstrated. The lungs are clear. No significant pericardial or pleural fluid. Mild adenopathy is present in the mediastinum and both h ilar regions. No concerning bony finding. IMPRESSION: No evidence of pulmonary thromboembolism. No acute lung findings. Mild mediastinal and hilar lymphadenopathy, nonspecific.
--- NOTE | 2020-01-26 22:36 | EDPHYS ---
Physician Documentation [facility] Name: Christiano Canales Age: 34 yrs Sex: Male : 1985 Arrival Date: 01/26/2020 Time: 16:50 Bed 8 Private MD: ED Physician Keshawn Allen HPI: 01/25 17:38 This 34 yrs old Male presents to ER via Ambulatory with complaints of ma2 Shortness Of Breath, Swelling. 17:38 This 34 yrs old Male presents to ER via Ambulatory with complaints of ma2 Shortness Of Breath, Swelling. 17:38 Onset: The symptoms/episode began/occurred gradually, 3 day(s) ago. Associated signs ma2 and symptoms: Pertinent negatives: productive cough, fever, loss of consciousness, numbness in extremities. Severity of symptoms: At their worst the symptoms were mild in the emergency department the symptoms are unchanged. generalized body edema, started on both ankles and progressed to all body over the last 2 days . Historical: - Allergies: 17:10 No Known Allergies; ss - Home Meds: 17:10 Suboxone 8-2 mg sublingual film 2 film once daily [Active]; ss - PSHx: 17:10 None; ss - Immunization history:: Adult Immunizations unknown. - Social history:: Smoking status: Patient reports the use of cigarette tobacco products, smokes one pack cigarettes per day. Patient/guardian denies using alcohol, street drugs, The patient lives with family. - Family history:: not pertinent. ROS: 17:38 Constitutional: Negative for fever, chills, and weight loss. ma2 17:38 All other systems are negative. Exam: 17:38 Constitutional: This is a well developed, well nourished patient who is awake, alert, ma2 and in no acute distress. Head/Face: generalized edema, Normocephalic, atraumatic. Chest/axilla: Normal chest wall appearance and motion. Nontender with no deformity. No lesions are appreciated. Cardiovascular: Regular rate and rhythm with a normal S1 and S2. No gallops, murmurs, or rubs. Normal PMI, no JVD. No pulse deficits. Respiratory: Lungs have equal breath sounds bilaterally, clear to auscultation and percussion. No rales, rhonchi or wheezes noted. No increased work of breathing, no retractions or nasal flaring. Abdomen/GI: Soft, non-tender, with normal bowel sounds. No distension or tympany. No guarding or rebound. No evidence of tenderness throughout. Skin: Warm, dry with normal turgor. Normal color with no rashes, no lesions, and no evidence of cellulitis. MS/ Extremity: bilat LE edmea pitting equal bilat/ Pulses equal, no cyanosis. Neurovascular intact. Full, normal range of motion. Neuro: Awake and alert, GCS 15, oriented to person, place, time, and situation. Cranial nerves II-XII grossly intact. Motor strength 5/5 in all extremities. Sensory grossly intact. Cerebellar exam normal. Normal gait. Vital Signs: 17:07 BP 165 / 96; Pulse 90; Resp 16; Temp 98.2; Pulse Ox 98% on R/A; Weight 97.52 kg; Height ss 5 ft. 8 in. (172.72 cm); Pain 3/10; 18:19 BP 136 / 68; Pulse 86; Resp 16; Pulse Ox 99% ; bp 20:18 BP 157 / 92; Pulse 94; Resp 18; Pulse Ox 100% on R/A; mg2 21:29 Pulse 86; Resp 18; Pulse Ox 98% on R/A; mg2 21:31 BP 131 / 90; mg2 22:30 BP 143 / 86; Pulse 75; Resp 18; Pulse Ox 100% on R/A; mg2 17:07 Body Mass Index 32.69 (97.52 kg, 172.72 cm) ss MDM: 17:18 Patient medically screened. ma2 17:38 Differential diagnosis: Anemia reactive airway disease, SUSAN, CKD vs minimal change ma2 disease. 22:32 Data reviewed: vital signs, nurses notes, old medical records, lab test result(s), [facility] cardiac enzymes, CBC, electrolytes, urinalysis, EKG, radiologic studies, CT scan, plain films. Data interpreted: vegetable canner: rate is 75 beats/min, rhythm is normal sinus rhythm, regular, Pulse oximetry: on room air is 100 %. Interpretation: normal. Counseling: I had a detailed discussion with the patient and/or guardian regarding: the historical points, exam findings, and any diagnostic results supporting the discharge/admit diagnosis, the presence of at least one elevated blood pressure reading (>120/80) during this emergency department visit, lab results, radiology results, the need for outpatient follow up, to return to the emergency department if symptoms worsen or persist or if there are any questions or concerns that arise at home. 01/25 17:37 Order name: Basic Metabolic Panel; Complete Time: 19:12 [facility] 01/25 17:37 Order name: CBC with Diff; Complete Time: 18:56 [facility] 01/25 17:37 Order name: Hepatic Function; Complete Time: 19:12 [facility] 01/25 17:37 Order name: Lipase; Complete Time: 19:12 [facility] 01/25 18:18 Order name: Urine Dipstick--Ancillary (enter results); Complete Time: 18:56 01/25 19:24 Order name: Troponin (emerg Dept Use Only); Complete Time: 20:46 [facility] 01/25 17:37 Order name: IV Saline Lock; Complete Time: 18:19 [facility] 01/25 17:37 Order name: Labs collected and sent; Complete Time: 18:19 [facility] 01/25 17:37 Order name: Urine Dipstick-Ancillary (obtain specimen); Complete Time: 18:19 [facility] 01/25 19:24 Order name: BNP; Complete Time: 20:46 [facility] 01/25 19:24 Order name: XRAY CXR (1 view); Complete Time: 21:16 [facility] 01/25 19:24 Order name: DD; Complete Time: 20:46 [facility] 01/25 20:47 Order name: CT Chest For PE Angio; Complete Time: 21:55 [facility] 01/25 21:56 Order name: EKG - Nurse/Tech; Complete Time: 22:28 7 Administered Medications: No medications were administered Disposition: 01/26/20 22:35 Discharged to Home. Impression: Peripheral Edema, Dyspnea, unspecified. - Condition is Stable. - Discharge Instructions: Shortness of Breath, Liil-ma-Rnyl, Peripheral Edema. - SBAR form, Medication Reconciliation Form, Thank You Letter, Antibiotic Education, Prescription Opioid Use form. - Follow up: Private Physician; When: 1 - 2 days; Reason: Worsening of condition, Recheck today's complaints, Re-evaluation by your physician. Follow up: Amirah Walls MD; When: 1 - 2 days; Reason: Worsening of condition, Recheck today's complaints. - Problem is new. - Symptoms have improved. Signatures: Dispatcher [employer] EDMS Nava Tracy RN RN ss Amirah De Jesus MD MD ma2 Bandar Poon RN RN mg2 Keshawn Allen MD MD [email or web address] Corrections: (The following items were deleted from the chart) 22:45 22:35 01/26/2020 22:35 Discharged to Home. Impression: Peripheral Edema; Dyspnea, mg2 unspecified. Condition is Stable. Forms are SBAR form, Medication Reconciliation Form, Thank You Letter, Antibiotic Education, Prescription Opioid Use. Follow up: Private Physician; When: 1 - 2 days; Reason: Worsening of condition, Recheck today's complaints, Re-evaluation by your physician. Follow up: Amirah Walls; When: 1 - 2 days; Reason: Worsening of condition, Recheck today's complaints. Problem is new. Symptoms have improved. [id number]
--- NOTE | 2020-01-26 22:36 | ER ---
Nurse's Notes [facility] Name: Christiano Canales Age: 34 yrs Sex: Male : 1985 Arrival Date: 01/26/2020 Time: 16:50 Bed 8 Private MD: Diagnosis: Peripheral Edema;Dyspnea, unspecified Presentation: 01/25 17:07 Chief complaint: Patient states: "My whole body has been swollen since Sunday. I was ss trying to wait it out, but it's getting worse and now I've been feeling short of breath for the past few hours.". Coronavirus screen: Proceed with normal triage. Patient denies a cough. Patient reports shortness of breath or difficulty breathing. Patient denies measured and/or subjective temperature greater than 100.4F prior to today's visit. Patient denies travel on a cruise ship or to a country the [facility] currently lists as an affected area. Patient denies contact with known and/or suspected case of COVID-19. Ebola Screen: Patient denies exposure to infectious person. Patient denies travel to an Ebola-affected area in the 21 days before illness onset. Initial Sepsis Screen: Does the patient meet any 2 criteria? No. Patient's initial sepsis screen is negative. Does the patient have a suspected source of infection? No. Patient's initial sepsis screen is negative. Risk Assessment: Do you want to hurt yourself or someone else? Patient reports no desire to harm self or others. Onset of symptoms was January 23, 2020. 17:07 Method Of Arrival: Ambulatory ss 17:07 Acuity: ODILON 3 ss Triage Assessment: 17:10 General: Appears in no apparent distress. comfortable, obese, Behavior is cooperative, bp appropriate for age, anxious. Pain: Denies pain. EENT: No deficits noted. Neuro: No deficits noted. Cardiovascular: Rhythm is sinus rhythm. Respiratory: Reports shortness of breath Onset: The symptoms/episode began/occurred at an unknown time. the patient has mild shortness of breath. GI: No signs and/or symptoms were reported involving the gastrointestinal system. : No signs and/or symptoms were reported regarding the genitourinary system. Derm: No deficits noted. Musculoskeletal: Reports GENERALIZED SWELLING. Historical: - Allergies: 17:10 No Known Allergies; ss - Home Meds: 17:10 Suboxone 8-2 mg sublingual film 2 film once daily [Active]; ss - PSHx: 17:10 None; ss - Immunization history:: Adult Immunizations unknown. - Social history:: Smoking status: Patient reports the use of cigarette tobacco products, smokes one pack cigarettes per day. Patient/guardian denies using alcohol, street drugs, The patient lives with family. - Family history:: not pertinent. Screenin:10 Abuse screen: Denies threats or abuse. Denies injuries from another. Nutritional bp screening: No deficits noted. Tuberculosis screening: No symptoms or risk factors identified. Fall Risk None identified. Assessment: 17:10 General: SEE TRIAGE NOTE. bp 17:10 Cardiovascular: Rhythm is sinus rhythm. Respiratory: Airway is patent Respiratory bp effort is even, unlabored, Breath sounds are clear bilaterally. 19:30 General: Appears in no apparent distress. comfortable, Behavior is calm, cooperative. mg2 Pain: Denies pain. Neuro: Level of Consciousness is awake, alert, obeys commands, Oriented to person, place, time, situation. Respiratory: Reports shortness of breath Breath sounds with rhonchi in left upper lobe. GI: No signs and/or symptoms were reported involving the gastrointestinal system. : No signs and/or symptoms were reported regarding the genitourinary system. EENT: No signs and/or symptoms were reported regarding the EENT system. Derm: Skin is intact, is healthy with good turgor, Skin is pink, warm \\T\\ dry. normal. Musculoskeletal: Circulation, motion, and sensation intact. Capillary refill < 3 seconds, Reports generalized body swelling. 20:18 Reassessment: Patient appears in no apparent distress at this time. Patient and/or mg2 family updated on plan of care and expected duration. Pain level reassessed. Patient is alert, oriented x 3, equal unlabored respirations, skin warm/dry/pink. 21:29 Reassessment: Patient appears in no apparent distress at this time. Patient and/or mg2 family updated on plan of care and expected duration. Pain level reassessed. Patient is alert, oriented x 3, equal unlabored respirations, skin warm/dry/pink. 22:31 Reassessment: Patient appears in no apparent distress at this time. Patient and/or mg2 family updated on plan of care and expected duration. Pain level reassessed. Patient is alert, oriented x 3, equal unlabored respirations, skin warm/dry/pink. Vital Signs: 17:07 BP 165 / 96; Pulse 90; Resp 16; Temp 98.2; Pulse Ox 98% on R/A; Weight 97.52 kg; Height ss 5 ft. 8 in. (172.72 cm); Pain 3/10; 18:19 BP 136 / 68; Pulse 86; Resp 16; Pulse Ox 99% ; bp 20:18 BP 157 / 92; Pulse 94; Resp 18; Pulse Ox 100% on R/A; mg2 21:29 Pulse 86; Resp 18; Pulse Ox 98% on R/A; mg2 21:31 BP 131 / 90; mg2 22:30 BP 143 / 86; Pulse 75; Resp 18; Pulse Ox 100% on R/A; mg2 17:07 Body Mass Index 32.69 (97.52 kg, 172.72 cm) ED Course: 16:50 Patient arrived in ED. ag5 17:09 Triage completed. ss 17:10 Arm band placed on right wrist. ss 17:10 Patient has correct armband on for positive identification. Bed in low position. Call bp light in reach. Side rails up X2. 17:15 Amirah De Jesus MD is Attending Physician. ma 17:45 Sánchez Lindsey, RISHI is Primary Nurse. bp 18:15 Inserted saline lock: 18 gauge in right antecubital area, using aseptic technique. bp Blood collected. 19:10 Attending Physician role handed off by Amirah De Jesus MD [facility] 19:10 Keshawn Allen MD is Attending Physician. 7 20:18 No provider procedures requiring assistance completed. mg2 20:46 Notified ED physician of a critical lab result(s). D-dimer of 2180. jd3 21:01 XRAY CXR (1 view) In Process Unspecified. EDMS 21:33 CT Chest For PE Angio In Process Unspecified. EDMS 22:34 Amirah Walls MD is Referral Physician. 7 22:45 IV discontinued, intact, bleeding controlled, No redness/swelling at site. Pressure mg2 dressing applied. Administered Medications: No medications were administered Outcome: 22:35 Discharge ordered by . 7 22:45 Discharged to home ambulatory. mg2 22:45 Condition: stable 22:45 Discharge instructions given to patient, Instructed on discharge instructions, follow up and referral plans. Demonstrated understanding of instructions, follow-up care. 22:45 Patient left the ED. mg2 Signatures: Dispatcher [employer] EDNava Palmer RN RN ss Onel Bridges RN RN jd3 Peltier, Brian, RN RN bp Alzahri, Mohammad, MD MD ma2 Bandar Poon RN RN mg2 Sarahy Gu ag5 Keshawn Allen MD MD 7 Corrections: (The following items were deleted from the chart) 21:12 19:30 Respiratory: Reports shortness of breath mg2 mg2
[2020-01-26 23:07] VITALS: TEMP 98.2
[2020-01-26 23:13] VITALS: BP 143/86; O2SAT 100
--- NOTE | 2020-01-28 12:26 | EKG ---
Test Date: 2020-01-26 Test Time: 22:22:36 Processing Supervisor: MEASUREMENT RESULTS: Intervals: Rate: 71 IL: 152 QRSD: 84 QT: 368 QTc: 399 [place]: P: 41 IL: 152 QRS: -7 T: 52 INTERPRETIVE STATEMENTS: Normal sinus rhythm Anterior infarct, age undetermined Abnormal ECG Compared to ECG 05/24/2019 13:28:44 Myocardial infarct finding now present Sinus bradycardia no longer present Sinus arrhythmia no longer present Electronically Signed On 01-28-20 12:22:39 CDT by Saqib Robertson
== END 2020-01-26 22:45 | disposition home or self-care (01) ==
LOC: ER 16:48
DX: R60.9 Edema, unspecified (principal); F17.210 Nicotine dependence, cigarettes, uncomplicated
CPT/HCPCS: 36415; 71045; 71275; 80048; 80076; 81003; 83690; 83880; 84484; 85025; 85379; 93005; 99284; Q9967

== ENCOUNTER 2020-02-05 11:37 | Emergency (ER) | payer SELFPAY ==
--- NOTE | 2020-02-05 14:42 | RAD REPORT ---
EXAM DESCRIPTION: RAD - Chest Pa And Lat (2 Views) - 02/05/2020 2:34 pm CLINICAL HISTORY: COUGH Chest pain. COMPARISON: Chest Single View dated 01/26/2020; Chest Pa And Lat (2 Views) dated 08/27/2017; Abdomen A cute Series dated 10/29/2016; Chest For Pe Angio dated 01/26/2020 FINDINGS: Patchy bilateral pulmonary opacities have developed since the comparative study suspicious for infection/ pneumonia. The heart is normal in size. No displaced fractures.
[2020-02-05 14:56] LABS: Absolute Lymphocytes (CBC) 1.8 K/uL (0.7-4.9); Basophils % 0.8 % (0-1.3); Hematocrit 29.9 % (39.6-49.0); Lymphocytes % 19.5 % (15.3-44.8); MPV 7.4 fL (7.6-11.3); RBC Red Blood Cell Count 3.39 M/uL (4.33-5.43)
--- OUTSIDE RECORDS SUMMARY | 2020-02-05 14:56 | XMS REPORT | Clinical Summary ---
:1985 Author Organization [facility] Address [address] [place] [address] Care Team Providers Name Role Phone Unavailable [...] Not on file Results Not on fileafter 02/04/2019
[2020-02-05 14:57] LABS: Protime INR 1.26
[2020-02-05] MEDS ORDERED: ALBUTEROL 2.5 MG/3 ML NEB SOL ONE (14:58)
[2020-02-05 15:08] LABS: ALT/SGPT 16 U/L (12-78); AST/SGOT 24 U/L (15-37); Albumin 2.4 g/dL (3.4-5.0); Alkaline Phosphatase 119 U/L (45-117); BUN Blood Urea Nitrogen 19 mg/dL (7-18); Bicarbonate 26 mmol/L (21-32); Bilirubin Total 0.3 mg/dL (0.2-1.0); Glucose Level 88 mg/dL (74-106); Potassium 4.5 mmol/L (3.5-5.1); Protein, Total 7.2 g/dL (6.4-8.2); Sodium Level 143 mmol/L (136-145)
--- NOTE | 2020-02-05 15:45 | RAD REPORT ---
EXAM DESCRIPTION: CT - Chest For Pe Angio - 02/05/2020 3:20 pm CLINICAL HISTORY: Chest pain. HEMOPTYSIS COMPARISON: Chest For Pe Angio dated 01/26/2020 TECHNIQUE: CT angiogram of the pulmonary arteries was performed with MIP. All CT scans are performed using dose optimization technique as appropriate and may include automated exposure control or mA/KV adjustment according to patient size. FINDINGS: No evidence of pulmonary thromboembolism. No acute aortic finding demonstrated. Moderate alveolar opacities are present bilaterally throughout both lung roe with subpleural spari ng noted most likely representing pneumonia. Moderate adenopathy is present in the mediastinum and hi lar regions, similar to comparative study. Trace pleural fluid. No concerning bony finding. IMPRESSION: No evidence of pulmonary thromboembolism. Moderate alveolar lung opacities are present bilaterally likely representing pneumonia.
--- NOTE | 2020-02-05 16:09 | EDPHYS ---
Physician Documentation [facility] Name: Christiano Canales Age: 34 yrs Sex: Male : 1985 Arrival Date: 02/05/2020 Time: 11:38 Bed 20 Private MD: ED Physician Ayo Ha HPI: 02/04 14:19 This 34 yrs old Male presents to ER via Ambulatory with complaints of jmm Breathing Difficulty, Coughing Up Blood. 14:19 The patient has shortness of breath at rest. Onset: The symptoms/episode began/occurred jmm gradually, 4 day(s) ago. Duration: The symptoms are continuous. The patient's shortness of breath is aggravated by exertion. Associated signs and symptoms: Pertinent positives: fever, hemoptysis. The patient has not experienced similar symptoms in the past. Historical: - Allergies: 11:47 No Known Allergies; jl7 - Home Meds: 11:47 Suboxone 8-2 mg sublingual film 2 film once daily [Active]; jl7 - PMHx: 11:47 Substance Abuse; jl7 - PSHx: 11:47 None; jl7 - Immunization history:: Adult Immunizations not up to date. - Social history:: Smoking status: Patient reports the use of cigarette tobacco products, smokes one pack cigarettes per day. ROS: 14:19 Eyes: Negative for injury, pain, redness, and discharge. jmm 14:19 Cardiovascular: Negative for chest pain, palpitations, and edema. 14:19 Constitutional: Positive for body aches, fever. 14:19 Respiratory: Positive for hemoptysis. 14:19 All other systems are negative. Exam: 14:19 Constitutional: This is a well developed, well nourished patient who is awake, alert, jmm and in no acute distress. Head/Face: atraumatic. Eyes: EOMI, no conjunctival erythema appreciated ENT: Moist Mucus Membranes Neck: Trachea midline, Supple Chest/axilla: Normal chest wall appearance and motion. Cardiovascular: Regular rate and rhythm. No edema appreciated 14:19 Abdomen/GI: Non distended, soft Back: Normal ROM Skin: General appearance color normal MS/ Extremity: Moves all extremities, no obvious deformities appreciated, no edema noted to the lower extremities Neuro: Awake and alert, normal gait Psych: Behavior is normal, Mood is normal, Patient is cooperative and pleasant 14:19 Respiratory: the patient does not display signs of respiratory distress, Respirations: normal, Breath sounds: wheezing: that is moderate, is heard diffusely. Vital Signs: 11:44 BP 145 / 71; Pulse 75; Resp 17; Temp 98.1; Pulse Ox 96% ; Weight 97.52 kg; Height 5 ft. jl7 8 in. (172.72 cm); Pain 0/10; 13:58 BP 135 / 80; Pulse 64; Resp 15 S; Pulse Ox 99% on R/A; ca1 14:54 BP 110 / 85; Pulse 69; Resp 18 S; Pulse Ox 100% ; ca1 15:42 BP 129 / 95; Pulse 95; Resp 16 S; Pulse Ox 100% on R/A; ca1 16:20 BP 122 / 77; Pulse 86; Resp 15 S; Pulse Ox 100% on R/A; ca1 11:44 Body Mass Index 32.69 (97.52 kg, 172.72 cm) jl7 MDM: 14:19 Patient medically screened. [facility] 16:05 Data reviewed: vital signs, nurses notes. Counseling: I had a detailed discussion with susana the patient and/or guardian regarding: the historical points, exam findings, and any diagnostic results supporting the discharge/admit diagnosis, lab results, the need for outpatient follow up, to return to the emergency department if symptoms worsen or persist or if there are any questions or concerns that arise at home. ED course: Patient is alert and non toxic in appearance in the ED. Patient is advised to follow up with pcp and otherwise given strict return precautions. Patient understood an agrees with the plan of care. . 07 14:23 Order name: CBC with Diff; Complete Time: 15:49 [facility] 02/04 14:23 Order name: CMP; Complete Time: 15:11 [facility] 02/04 11:56 Order name: Chest Pa And Lat (2 Views) XRAY; Complete Time: 15:07 02/04 14:23 Order name: PT-INR; Complete Time: 15:49 [facility] 02/04 14:23 Order name: CT Chest For PE Angio; Complete Time: 15:49 [facility] 02/04 14:23 Order name: Saline Lock; Complete Time: 14:46 [facility] Administered Medications: 14:52 Drug: Albuterol 2.5 mg Route: Inhalation; ca1 15:02 Drug: Albuterol 2.5 mg Route: Inhalation; ca1 15:22 Drug: Albuterol 2.5 mg Route: Inhalation; ca1 16:10 Drug: LevaQUIN 750 mg Route: PO; ca1 16:21 Follow up: Response: No adverse reaction ca1 Disposition: 02/05 08:43 Co-signature as Attending Physician, Ayo Ha MD I agree with the assessment and kdr plan of care. Disposition: 02/05/20 16:08 Discharged to Home. Impression: Pneumonia. - Condition is Stable. - Discharge Instructions: Community-Acquired Pneumonia, Adult. - Prescriptions for Levaquin 750 mg Oral Tablet - take 1 tablet by ORAL route once daily for 10 days; 10 tablet. Albuterol Sulfate 90 mcg/actuation - inhale 1-2 puff by INHALATION route every 4-6 hours; 1 Inhaler. - Medication Reconciliation Form, Thank You Letter, Antibiotic Education, Prescription Opioid Use form. - Follow up: Private Physician; When: 2 - 3 days; Reason: Recheck today's complaints, Continuance of care, Re-evaluation by your physician. Signatures: Dispatcher [employer] EDMO Ayo Ha MD MD kdr Mickail, Joel, PA PA jmm Leal, Jahala RN RN jl7 Greer Gaviria RN RN ca1 Corrections: (The following items were deleted from the chart) 02/04 16:21 16:08 02/05/2020 16:08 Discharged to Home. Impression: Pneumonia. Condition is Stable. ca1 Forms are Medication Reconciliation Form, Thank You Letter, Antibiotic Education, Prescription Opioid Use. Follow up: Private Physician; When: 2 - 3 days; Reason: Recheck today's complaints, Continuance of care, Re-evaluation by your physician. susana
--- NOTE | 2020-02-05 16:09 | ER ---
Nurse's Notes [facility] Name: Christiano Canales Age: 34 yrs Sex: Male : 1985 Arrival Date: 02/05/2020 Time: 11:38 Bed 20 Private MD: Diagnosis: Pneumonia Presentation: 02/04 11:44 Chief complaint: Patient states: Came in about a week ago for shortness of breath and jl7 was sent home, told to come back if it gets worse. "For the past 3 days I've been coughing up a lot of blood, like chunks of blood.". Coronavirus screen: Patient reports a cough. Patient reports shortness of breath or difficulty breathing. Patient reports a measured and/or subjective temperature greater than 100.4F. Patient denies travel on a cruise ship or to a country the [facility] currently lists as an affected area. Patient denies contact with known and/or suspected case of COVID-19. Ebola Screen: No symptoms or risks identified at this time. Initial Sepsis Screen: Does the patient meet any 2 criteria? No. Patient's initial sepsis screen is negative. Does the patient have a suspected source of infection? No. Patient's initial sepsis screen is negative. Risk Assessment: Do you want to hurt yourself or someone else? Patient reports no desire to harm self or others. Onset of symptoms was January 28, 2020. Care prior to arrival: None. 11:44 Method Of Arrival: Ambulatory [facility] 11:44 Acuity: ODILON 3 jl7 Triage Assessment: 11:47 General: Appears in no apparent distress. uncomfortable, Behavior is calm, cooperative. jl7 Pain: Denies pain. Respiratory: Reports shortness of breath at rest cough that is productive, Airway is patent Respiratory effort is even, unlabored, Respiratory pattern is regular, symmetrical, Onset: The symptoms/episode began/occurred gradually, the patient has mild shortness of breath. Historical: - Allergies: 11:47 No Known Allergies; jl7 - Home Meds: 11:47 Suboxone 8-2 mg sublingual film 2 film once daily [Active]; jl7 - PMHx: 11:47 Substance Abuse; jl7 - PSHx: 11:47 None; jl7 - Immunization history:: Adult Immunizations not up to date. - Social history:: Smoking status: Patient reports the use of cigarette tobacco products, smokes one pack cigarettes per day. Screenin:35 Abuse screen: Denies threats or abuse. Denies injuries from another. Nutritional ca1 screening: No deficits noted. Tuberculosis screening: No symptoms or risk factors identified. Fall Risk None identified. Assessment: 11:58 Reassessment: Informed Dr Ha of reason for visit, ok to order CXR PA/LAT. sv 13:30 General: Appears in no apparent distress. comfortable, Behavior is calm, cooperative, ca1 appropriate for age. Pain: Denies pain. Neuro: Level of Consciousness is awake, alert, obeys commands, Oriented to person, place, time, situation. Cardiovascular: Heart tones S1 S2 present Capillary refill < 3 seconds Patient's skin is warm and dry. Rhythm is regular. Respiratory: Airway is patent Respiratory effort is even, unlabored, Respiratory pattern is regular, symmetrical, Breath sounds are clear bilaterally. Respiratory: Reports cough that is. GI: Abdomen is round non-distended, Bowel sounds present X 4 quads. Abd is soft and non tender X 4 quads. : No signs and/or symptoms were reported regarding the genitourinary system. EENT: No signs and/or symptoms were reported regarding the EENT system. Derm: Skin is intact, is healthy with good turgor, Skin is pink, warm \\T\\ dry. Musculoskeletal: Circulation, motion, and sensation intact. Capillary refill < 3 seconds. 14:32 Reassessment: Patient appears in no apparent distress at this time. Patient and/or ca1 family updated on plan of care and expected duration. Pain level reassessed. Patient is alert, oriented x 3, equal unlabored respirations, skin warm/dry/pink. 15:42 Reassessment: Patient appears in no apparent distress at this time. Patient and/or ca1 family updated on plan of care and expected duration. Pain level reassessed. Patient is alert, oriented x 3, equal unlabored respirations, skin warm/dry/pink. 16:20 Reassessment: Patient appears in no apparent distress at this time. Patient is alert, ca1 oriented x 3, equal unlabored respirations, skin warm/dry/pink. Vital Signs: 11:44 BP 145 / 71; Pulse 75; Resp 17; Temp 98.1; Pulse Ox 96% ; Weight 97.52 kg; Height 5 ft. jl7 8 in. (172.72 cm); Pain 0/10; 13:58 BP 135 / 80; Pulse 64; Resp 15 S; Pulse Ox 99% on R/A; ca1 14:54 BP 110 / 85; Pulse 69; Resp 18 S; Pulse Ox 100% ; ca1 15:42 BP 129 / 95; Pulse 95; Resp 16 S; Pulse Ox 100% on R/A; ca1 16:20 BP 122 / 77; Pulse 86; Resp 15 S; Pulse Ox 100% on R/A; ca1 11:44 Body Mass Index 32.69 (97.52 kg, 172.72 cm) jl7 ED Course: 11:38 Patient arrived in ED. ag5 11:47 Triage completed. jl7 11:47 Arm band placed on right wrist. jl7 13:25 Greer Gaviria, RN is Primary Nurse. ca1 13:35 Patient has correct armband on for positive identification. Placed in gown. Bed in low ca1 position. Call light in reach. Side rails up X 1. Pulse ox on. NIBP on. Warm blanket given. 13:49 Benjamin Hastings PA is PHCP. jmm 13:49 Ayo Ha MD is Attending Physician. jmm 14:35 Chest Pa And Lat (2 Views) XRAY In Process Unspecified. EDMS 14:45 Initial lab(s) drawn, by fl, sent to lab. Inserted saline lock: 22 gauge in right em antecubital area, using aseptic technique. Blood collected. 15:20 CT Chest For PE Angio In Process Unspecified. EDMS 16:11 No provider procedures requiring assistance completed. ca1 16:20 IV discontinued, intact, bleeding controlled, No redness/swelling at site. Pressure ca1 dressing applied. Administered Medications: 14:52 Drug: Albuterol 2.5 mg Route: Inhalation; ca1 15:02 Drug: Albuterol 2.5 mg Route: Inhalation; ca1 15:22 Drug: Albuterol 2.5 mg Route: Inhalation; ca1 16:10 Drug: LevaQUIN 750 mg Route: PO; ca1 16:21 Follow up: Response: No adverse reaction ca1 Outcome: 16:08 Discharge ordered by . jmm 16:20 Discharged to home ambulatory. ca1 16:20 Condition: stable 16:20 Discharge instructions given to patient, Instructed on discharge instructions, follow up and referral plans. medication usage, Demonstrated understanding of instructions, follow-up care, medications, Prescriptions given X 2. 16:21 Patient left the ED. ca1 Signatures: Dispatcher [employer] Kaila Rodrigez, Benjamin Simmons RN, PA PA jmm Munoz, Edgar, RN RN em Leal, Jahala, RN RN jl7 Greer Gaviria RN RN ca1 Gaskin, Ajare 5
[2020-02-05] MEDS ORDERED: levoFLOXacin 750 MG TAB ONE (16:18)
[2020-02-05 16:40] VITALS: TEMP 98.1
[2020-02-05 16:43] VITALS: O2SAT 100
[2020-02-05 16:46] VITALS: BP 122/77
== END 2020-02-05 16:21 | disposition home or self-care (01) ==
LOC: ER 11:37
DX: J18.9 Pneumonia, unspecified organism (principal)
CPT/HCPCS: 36415; 71046; 71275; 80053; 82565; 85025; 85610; 99284; Q9967

== ENCOUNTER 2021-07-13 19:27 | Emergency (ER) | payer SELFPAY ==
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
[2021-07-13] MEDS ORDERED: DERMABOND SKIN ADHESIVE TOP ONE (21:07)
--- NOTE | 2021-07-13 21:15 | ER ---
Nurse's Notes [facility] Name: Christiano Canales Age: 36 yrs Sex: Male : 1985 Arrival Date: 07/13/2021 Time: 19:29 Bed 6 Private MD: Diagnosis: Laceration without foreign body of other part of head, initial encounter-Forehead;Unspecified superficial injury of other part of head, initial encounter Presentation: 07/13 19:30 Chief complaint: EMS states: they were toned out for report of pt who after being bb arrested hit his forehead in the vehicle receiving small lac to forehead no LOC. Coronavirus screen: At this time, the client does not indicate any symptoms associated with coronavirus-19. Ebola Screen: No symptoms or risks identified at this time. Initial Sepsis Screen: Does the patient meet any 2 criteria? No. Patient's initial sepsis screen is negative. Does the patient have a suspected source of infection? No. Patient's initial sepsis screen is negative. Risk Assessment: Do you want to hurt yourself or someone else? Patient reports no desire to harm self or others. Onset of symptoms was July 13, 2021. 19:30 Method Of Arrival: EMS: [facility] bb 19:30 Acuity: ODILON 4 bb Historical: - Allergies: 19:31 No Known Allergies; bb - Home Meds: 19:31 None [Active]; bb - PMHx: 19:31 Substance Abuse; bb - Immunization history:: Adult Immunizations unknown. - Social history:: Smoking status: unknown. - Family history:: not pertinent. - Hospitalizations: : No recent hospitalization is reported. Screenin:32 Abuse screen: Denies threats or abuse. Nutritional screening: No deficits noted. bb Tuberculosis screening: No symptoms or risk factors identified. Fall Risk None identified. Assessment: 19:32 General: Appears in no apparent distress. restrained in police custody. Behavior is bb cooperative. Pain: Complains of pain in forehead. Neuro: Level of Consciousness is awake, alert, obeys commands, Oriented to person, place, time, situation. Cardiovascular: Capillary refill < 3 seconds Patient's skin is warm and dry. Respiratory: Respiratory effort is even, unlabored, Respiratory pattern is regular. GI: No signs and/or symptoms were reported involving the gastrointestinal system. Derm: Wound noted forehead Wound is small laceration, not bleeding, linear. Musculoskeletal: Circulation, motion, and sensation intact. 21:57 Reassessment: Patient is alert, oriented x 3, equal unlabored respirations, skin bb warm/dry/pink. steri-strips in place pt verbalized understanding of and agrees to plan of care discharge instructions given pt in police custody ambulated with steady gait to exit accompanied by [place] [employer] officer. Vital Signs: 19:30 BP 131 / 77; Pulse 97; Resp 16 S; Temp 98.6(O); Pulse Ox 99% on R/A; Weight 81.65 kg bb (R); Height 5 ft. 6 in. (167.64 cm) (R); 19:30 Body Mass Index 29.05 (81.65 kg, 167.64 cm) bb Christiana Coma Score: 19:30 Eye Response: spontaneous(4). Verbal Response: oriented(5). Motor Response: obeys rn commands(6). Total: 15. 21:12 Eye Response: spontaneous(4). Verbal Response: oriented(5). Motor Response: obeys rn commands(6). Total: 15. ED Course: 19:29 Patient arrived in ED. rn 19:29 Gaurang Agee MD is Attending Physician. rn 19:31 Triage completed. bb 19:31 Arm band placed on Patient placed in an exam room, on a stretcher, on pulse oximetry. bb 19:32 Patient has correct armband on for positive identification. Bed in low position. Side bb rails up X2. in police custody. 20:18 Beronica Goddard is Primary Nurse. tw5 20:42 CT Head Brain wo Cont In Process Unspecified. EDMS 21:58 Assist provider with laceration repair on forehead using Steri-strips. Patient did not bb have IV access during this emergency room visit. Administered Medications: 21:53 Drug: HYDROcodone-acetaminophen 5 mg-325 mg 2 tabs {Note: RASS 0.} Route: PO; bb 21:56 Follow up: Response: RASS: Alert and Calm (0) bb Outcome: 21:15 Discharge ordered by . rn 21:58 Discharged to Law Enforcement bb 21:58 Condition: stable 21:58 Discharge instructions given to patient, Instructed on discharge instructions, follow up and referral plans. wound care, Demonstrated understanding of instructions, follow-up care, wound care. 21:59 Patient left the ED. bb Signatures: Dispatcher [employer] Trish Adan RN RN bb Nieto, Roman, MD MD rn Wood, Tiffany tw5
--- NOTE | 2021-07-13 21:15 | EDPHYS ---
Physician Documentation [facility] Name: Christiano Canales Age: 36 yrs Sex: Male : 1985 Arrival Date: 07/13/2021 Time: 19:29 Bed 6 Private MD: ED Physician Gaurang Agee HPI: 07/13 19:30 This 36 yrs old Male presents to ER via Unassigned with complaints of Head rn injury/facial laceration. 19:30 The patient or guardian reports injury, a laceration, 3 cm(s), clean, simple. The rn complaints affect the forehead. Context of injury:. Onset: The symptoms/episode began/occurred just prior to arrival. Associated signs and symptoms: Loss of consciousness: This patient did not experience any loss of consciousness. Pertinent positives: headache, Pertinent negatives: nausea, neck pain, seizure. Severity of symptoms: At their worst the symptoms were very mild, in the emergency department the symptoms are unchanged. The patient has not experienced similar symptoms in the past. The patient has not recently seen a physician. Patient reports was in back of police vehicle, was upset and slammed his head on his own into cage. No LOC. Does not take blood thinners. Reports headache but no vomiting or focal neurological complaints. No other injuries.. Historical: - Allergies: 19:31 No Known Allergies; bb - Home Meds: 19:31 None [Active]; bb - PMHx: 19:31 Substance Abuse; bb - Immunization history:: Adult Immunizations unknown. - Social history:: Smoking status: unknown. - Family history:: not pertinent. - Hospitalizations: : No recent hospitalization is reported. ROS: 19:30 Constitutional: Negative for fever, chills, and weight loss, Eyes: Negative for injury, rn pain, redness, and discharge, ENT: Negative for injury, pain, and discharge, Neck: Negative for injury, pain, and swelling, Cardiovascular: Negative for chest pain, palpitations, and edema, Respiratory: Negative for shortness of breath, cough, wheezing, and pleuritic chest pain, Abdomen/GI: Negative for abdominal pain, nausea, vomiting, diarrhea, and constipation, Back: Negative for injury and pain, : Negative for injury, bleeding, discharge, and swelling, MS/Extremity: Negative for injury and deformity, Skin: Positive for forehead laceration Neuro: Negative for weakness, numbness, tingling, and seizure. Exam: 19:30 Constitutional: This is a well developed, well nourished patient who is awake, alert, rn and in no acute distress. Head/Face: Normocephalic, 3 cm simple and very superficial laceration horizontal over mid forehead. No active bleeding. No foreign bodies. Does not gape open with lateral pressure. Eyes: Periorbital areas with no swelling, redness, or edema. Neck: Trachea midline, no masses palpated Chest/axilla: Normal chest wall appearance and motion. Nontender with no deformity. No lesions are appreciated. Cardiovascular: Regular rate and rhythm. No pulse deficits. Respiratory: No increased work of breathing, no retractions or nasal flaring. Abdomen/GI: Soft, non-tender Skin: Warm, dry MS/ Extremity: Pulses equal, no cyanosis Neuro: Awake and alert, GCS 15, oriented to person, place, time, and situation. Cranial nerves II-XII grossly intact. Motor strength 5/5 in all extremities. Sensory grossly intact. Vital Signs: 19:30 BP 131 / 77; Pulse 97; Resp 16 S; Temp 98.6(O); Pulse Ox 99% on R/A; Weight 81.65 kg bb (R); Height 5 ft. 6 in. (167.64 cm) (R); 19:30 Body Mass Index 29.05 (81.65 kg, 167.64 cm) bb Christiana Coma Score: 19:30 Eye Response: spontaneous(4). Verbal Response: oriented(5). Motor Response: obeys rn commands(6). Total: 15. 21:12 Eye Response: spontaneous(4). Verbal Response: oriented(5). Motor Response: obeys rn commands(6). Total: 15. Laceration: 21:12 Wound Repair of 3cm ( 1.2in ) subcutaneous laceration to forehead. Distal rn neuro/vascular/tendon intact. Wound prep: Extensive cleansing by technician plant and maintenance, Wound explored extensively, Copious irrigation. Skin closed with 1 thin layer Adhesive skin closure using Dermabond. Dressed with steri-strips. Patient tolerated well. MDM: 19:29 Patient medically screened. rn 21:12 Differential diagnosis: Contusion of Laceration of Concussion cerebral contusion. Data rn reviewed: vital signs, nurses notes, radiologic studies, CT scan, and as a result, I will discharge patient. Counseling: I had a detailed discussion with the patient and/or guardian regarding: the historical points, exam findings, and any diagnostic results supporting the discharge/admit diagnosis, radiology results, the need for outpatient follow up, to return to the emergency department if symptoms worsen or persist or if there are any questions or concerns that arise at home. Response to treatment: the patient's symptoms have markedly improved after treatment, and as a result, I will discharge patient. Special discussion: I discussed with the patient/guardian in detail that at this point there is no indication for admission to the hospital. It is understood, however, that if the symptoms persist or worsen the patient needs to return immediately for re-evaluation. 21:12 Special discussion: Based on the patient's history, exam and DX evaluation, there is no rn indication for emergent intervention or inpatient TX. It is understood by the patient/guardian that if the SXs persist or worsen they need to return immediately for re-evaluation. 07/13 19:29 Order name: CT Head Brain wo Cont; Complete Time: 21:05 rn 07/13 19:29 Order name: Wound Care; Complete Time: 20:27 rn 07/13 19:29 Order name: Dermabond; Complete Time: 21:06 rn Administered Medications: 21:53 Drug: HYDROcodone-acetaminophen 5 mg-325 mg 2 tabs {Note: RASS 0.} Route: PO; bb 21:56 Follow up: Response: RASS: Alert and Calm (0) bb Disposition Summary: 07/13/21 21:15 Discharge Ordered Location: Home rn Problem: new rn Symptoms: have improved rn Condition: Stable rn Diagnosis - Laceration without foreign body of other part of head, initial encounter - Forehead rn - Unspecified superficial injury of other part of head, initial encounter rn Followup: rn - With: Private Physician - When: As needed - Reason: Recheck today's complaints, Re-evaluation by your physician Discharge Instructions: - Discharge Summary Sheet rn - Head Injury, Adult rn - Laceration Care, Adult rn Forms: - Medication Reconciliation Form rn - Thank You Letter rn - Antibiotic e learning designer - Prescription Opioid Use rn Signatures: Dispatcher [employer] EDTrish Wren RN RN bb Agee, Gaurang, MD MD rn
[2021-07-13] MEDS ORDERED: HYDROCODONE/APAP 5/325 MG TAB ONE (21:54)
[2021-07-13 22:32] VITALS: BP 131/77; TEMP 98.6; O2SAT 99
== END 2021-07-13 21:59 | disposition home or self-care (01) ==
LOC: ER 19:27
PROC: 0JQ10ZZ Repair Face Subcutaneous Tissue and Fascia, Open Approach (ICD-10-PCS; principal; 2021-07-13)
DX: S01.81XA Laceration without foreign body of other part of head, initial encounter (principal); W22.8XXA Striking against or struck by other objects, initial encounter; Y92.89 Other specified places as the place of occurrence of the external cause
CPT/HCPCS: 70450; 99284